=== PATIENT | female | born 1990 | race African-American/Black ===

== ENCOUNTER 2017-08-21 22:17 | Emergency (ER) | payer SELFPAY ==
[~2017-08-21] VITALS: Ht 157.5 cm; Wt 87.0 kg
[2017-08-21 22:29] VITALS: BP 108/70
[2017-08-22] MEDS ORDERED: KETOROLAC 60MG/2ML VIAL IM ONE
[2017-08-22] MEDS ORDERED: TETANUS, DIPHTHERIA, PERTUSSIS VAC/PF 0.5ML (>7YR OLD) IM ONE (00:15)
== END 2017-08-22 02:26 | disposition home or self-care (01) ==
LOC: ER 22:34
DX: S61.253A Open bite of left middle finger without damage to nail, initial encounter (principal); S61.252A Open bite of right middle finger without damage to nail, initial encounter; S41.051A Open bite of right shoulder, initial encounter; Y04.1XXA Assault by human bite, initial encounter; Y93.89 Activity, other specified; Y92.018 Other place in single-family (private) house as the place of occurrence of the external cause
CPT/HCPCS: 29130; 73030; 73130; 90471; 90715; 96372; 99284; J1885